=== PATIENT | male | born 1980 | race Caucasian/White ===

== ENCOUNTER 2017-04-03 20:32 | Emergency (ER) | payer OTHER ==
[~2017-04-03] VITALS: Ht 175.3 cm; Wt 102.1 kg
[2017-04-03 20:33] VITALS: BP 134/82
[2017-04-03] MEDS ORDERED: DIPH,PERTUSS(ACELL),TET VAC/PF 0.5 ML IM-VACC ONE ×2 (20:51→21:00)
[2017-04-03] MEDS ORDERED: LIDOCAINE 1%, 20ML SQ ONE (21:00)
[2017-04-03] MEDS ORDERED: BACITRACIN ZINC OINT 500U/GM, 0.9 GM ONE (21:30)
== END 2017-04-03 21:43 | disposition home or self-care (01) ==
LOC: ED 21:01
DX: S62.634B Displaced fracture of distal phalanx of right ring finger, initial encounter for open fracture (principal); W21.07XA Struck by softball, initial encounter; Y93.89 Activity, other specified; Y99.8 Other external cause status; Y92.89 Other specified places as the place of occurrence of the external cause
CPT/HCPCS: 11740; 99285

== ENCOUNTER 2020-04-28 16:07 | Emergency (ER) | payer MEDICAID ==
[~2020-04-28] VITALS: Ht 175.3 cm; Wt 89.4 kg
[2020-04-28] MEDS ORDERED: L.E.T SOLUTION TP ONE ×2 (16:46→17:00)
--- NOTE | 2020-04-28 16:53 | NUR ---
LET APPLIED TO R FOREARM. PT TO XRAY AT THIS TIME.
[2020-04-28 17:34] VITALS: BP 131/70
--- NOTE | 2020-04-28 17:56 | NUR ---
Patient given wound care/discharge instructions and Rx, they have confirmed that they understand the instructions. Patient ambulatory with steady gait.
== END 2020-04-28 17:58 | disposition home or self-care (01) ==
LOC: ED 17:45
DX: S50.811A Abrasion of right forearm, initial encounter (principal); V89.2XXA Person injured in unspecified motor-vehicle accident, traffic, initial encounter; Y93.89 Activity, other specified; Y92.89 Other specified places as the place of occurrence of the external cause; Y99.8 Other external cause status
CPT/HCPCS: 99283

== ENCOUNTER 2021-01-24 23:35 | Emergency (ER) | payer MEDICAID ==
[~2021-01-24] VITALS: Ht 177.8 cm; Wt 89.0 kg
[2021-01-24 23:44] VITALS: BP 129/73
--- NOTE | 2021-01-25 00:38 | NUR ---
automobile rental agent: Called for patient. Pt not in lobby at this time.
--- NOTE | 2021-01-25 00:58 | NUR ---
salad maker: Called for patient, pt not in lobby at this time.
--- NOTE | 2021-01-25 01:16 | NUR ---
corrections counselor: Called for patient. Pt not in lobby at this time. Lobby searched. 3rd attempt.
== END 2021-01-25 01:19 | disposition left against medical advice (07) ==
LOC: ED 23:45
DX: Z53.21 Procedure and treatment not carried out due to patient leaving prior to being seen by health care provider (principal)